=== PATIENT | female | born 1960 | race African-American/Black ===

== ENCOUNTER 2017-07-01 17:54 | Emergency (ER) | payer SELFPAY ==
[~2017-07-01] VITALS: Ht 167.6 cm; Wt 68.0 kg
[~2017-07-01 17:54] MED LIST: IBUP600T26 PO; ROBA750T3 PO
[2017-07-01 17:59] VITALS: BP 138/75; PULSE 90; RESP 14; TEMP 98.8; O2SAT 98
--- NOTE | 2017-07-01 19:26 | PD ---
HPI Chief Complaint: Oral / Dental Pain or Problem Time Seen by Provider: 19:23 Travel History International Travel<30 days: No Contact w/Intl Traveler<30days: No Traveled to known affect area: No History of Present Illness HPI c/o 3 days worth of dental pain, denies fever, nonrad, 11/28. no alleviating factors , worse with chewing. denies assoc factors such as fever, n/v/d/abdpain /cp/backpain/ PFSH Past Medical History Diminished Hearing: No : 2 Para: 3 Social History Alcohol Use: No Tobacco Use: Yes (1 PACK PER 2 WEEKS) Substance Use: No Allergies-Medications (Allergen,Severity, Reaction): Coded Allergies: No Known Allergies (Verified , 03/12/15) Reported Meds & Prescriptions Reported Meds & Active Scripts Active Robaxin-750 (Methocarbamol) 750 Mg Tab 750 Mg PO QID PRN FOR PAIN Ibuprofen 600 Mg Tab 600 Mg PO Q8HR PRN Review of Systems General / Constitutional: No: Fever Eyes: No: Visual changes HENT: Positive: Dental Difficulties Cardiovascular: No: Chest Pain or Discomfort Respiratory: No: Shortness of Breath Gastrointestinal: No: Abdominal Pain Genitourinary: No: Dysuria Musculoskeletal: No: Pain Skin: No Rash Neurologic: No: Weakness Psychiatric: No: Depression Endocrine: No: Polydipsia Hematologic/Lymphatic: No: Easy Bruising Physical Exam Narrative GENERAL: SKIN: Warm and dry. HEAD: Atraumatic. Normocephalic. EYES: Pupils equal and round. No scleral icterus. No injection or drainage. ENT: No nasal bleeding or discharge. Mucous membranes pink and moist. gingivitis and edema localized at mandibular M2, no facial extension, no lad NECK: Trachea midline. No JVD. CARDIOVASCULAR: Regular rate and rhythm. RESPIRATORY: No accessory muscle use. Clear to auscultation. Breath sounds equal bilaterally. GASTROINTESTINAL: Abdomen soft, non-tender, nondistended. MUSCULOSKELETAL: Extremities without clubbing, cyanosis, or edema. No obvious deformities. NEUROLOGICAL: Awake and alert. No obvious cranial nerve deficits. Motor grossly within normal limits. Five out of 5 muscle strength in the arms and legs. Normal speech. PSYCHIATRIC: Appropriate mood and affect; insight and judgment normal. Data Data Last Documented VS Vital Signs Date Time Temp Pulse Resp B/P (MAP) Pulse Ox O2 Delivery O2 Flow Rate FiO2 07/01/17 17:59 98.8 90 14 138/75 (96) 98 Orders Orders Amoxicillin (Trimox) (07/01/17 19:30) Tramadol (Ultram) (07/01/17 19:30) MDM Medical Decision Making Medical Screen Exam Complete: Yes Emergency Medical Condition: No Medical Record Reviewed: Yes Differential Diagnosis gingivitis v dental abscess v facial extension Narrative Course noted dental infection without facial extension....will provide first dose and then d/c home Diagnosis Primary Impression: toothache Patient Instructions: General Instructions, Toothache (ED) Scripts Tramadol (Ultram) 50 Mg Tab 50 MG PO Q6H Y for PAIN, #12 TAB 0 Refills Prov: Jayy William MD 07/01/17 Amoxicillin (Amoxicillin) 875 Mg Tab 875 MG PO BID for Infection for 7 Days, #14 TAB 0 Refills Prov: Jayy William MD 07/01/17 Disposition: 01 DISCHARGE HOME Condition: Stable Jayy William MD Jul 01, 2017 19:26
[2017-07-01] MEDS ORDERED: AMOXICILLIN 875 MG TAB PO ONE (19:30)
[2017-07-01] MEDS ORDERED: traMADol HCL 50 MG TAB PO ONE ×2 (19:30→20:00)
[2017-07-01] MEDS ORDERED: AMOX875T PO (19:32)
[2017-07-01] MEDS ORDERED: TRAM50 PO (19:32)
== END 2017-07-01 20:31 | disposition home or self-care (01) ==
LOC: NEPD 17:54
DX: K08.89 Other specified disorders of teeth and supporting structures (principal); Z72.0 Tobacco use
CPT/HCPCS: 99283